=== PATIENT | male | born 1940 | race Caucasian/White ===

== ENCOUNTER 2019-10-29 08:49 | Inpatient (IN) ==
[2019-10-29] MEDS ORDERED: IOPAMIDOL 100 ML BOTTLE IV ONE (08:50)
[2019-10-29 09:55] LABS: Basophils # (Auto) 0.02 K/mcL (0.00-0.30); Basophils % (Auto) 0.2 % (0.0-2.0); Eosinophils # (Auto) 0.01 K/mcL (0.00-0.70); Eosinophils % (Auto) 0.1 % (0.0-7.0); Granulocytes % (Auto) 79.6 % (38.0-78.0); Hematocrit 51.6 % (40.1-51.0); Hemoglobin 16.9 g/dL (13.7-17.5); Lymphocytes # (Auto) 1.01 K/mcL (1.50-4.80); Lymphocytes % (Auto) 11.9 % (15.5-49.0); Mean Cell Volume 90.2 fL (80.0-100.0); Mean Corpuscular HGB Conc 32.8 g/dL (31.0-36.0); Mean Platelet Volume 9.5 fL (7.4-10.4); Monocytes # (Auto) 0.69 K/mcL (0.10-0.90); Monocytes % (Auto) 8.2 % (1.0-12.0); RBC 5.72 M/mcL (4.63-6.08); Red Cell Distribution Width 13.2 % (11.5-14.5); WBC 8.5 K/mcL (4.50-11.00)
[2019-10-29 09:57] LABS: Platelet Count 136 K/mcL (140-440)
[2019-10-29] MEDS ORDERED: OMEPRAZOLE 20 MG CAPSULE PO STA (10:08)
[2019-10-29 10:12] LABS: ALT/SGPT 21 U/l (0-40); AST/SGOT 21 U/l (0-37); Albumin 4.5 gm/dL (3.2-5.2); Albumin/Globulin Ratio 1.7 (1.0-2.3); Alkaline Phosphatase 81 U/L (39-117); Bilirubin,Total 0.5 mg/dL (0.0-1.0); Blood Urea Nitrogen 18 mg/dl (8-23); Calcium 11.1 mg/dl (8.6-10.4); Carbon Dioxide 29 mmol/L (22-30); Chloride 98 mmol/L (96-108); Globulin 2.6 gm/dL (2.2-3.7); Glomerular Filtration Rate 57; Glucose 146 mg/dL (70-105)
[2019-10-29 11:15] LABS: C-Reactive Protein 0.3 mg/dl (0.0-0.8)
[2019-10-29] MEDS ORDERED: PIPERACILLIN SODIUM/TAZOBACTAM 3.375 GM in DEXTROSE 5% IN WATER 50 ML IV ONE (11:25)
--- NOTE | 2019-10-29 11:27 | Ultrasound Report ---
History: Epigastric pain FINDINGS: The liver is normal in size. Beneath the capsule high in the right lobe there is a 9 mm cyst. The liver is otherwise homogeneous. Doppler shows normal blood flow in the hepatic and portal veins. There are multiple stones along with sludge within the lumen of the gallbladder. Gallbladder wall is thickened and measures 5 mm. There is a thin rim of pericholecystic fluid. The patient was tender while scanning over the gallbladder. The common bile duct is borderline dilated measures 7 mm. There is no apparent stone in the distal common bile duct. The visualized portions of the pancreas are normal. IMPRESSION: Cholelithiasis and cholecystitis Dr. Pierre was called with results Interpreted and Authenticated by: Dennys Blanco 10/29/19
--- NOTE | 2019-10-29 11:32 | Emergency Department Note ---
Abdominal Pain HPI General Chief Complaint: Abdominal Pain Stated Complaint: abdominal pain Time Seen by Provider: 10/29/19 10:08 Source: patient Mode of arrival: ambulatory Limitations: no limitations History of Present Illness HPI Narrative: This pleasant 79-year-old male comes emergency room with yesterday late afternoon or early evening onset of abdominal pain in the epigastric and right upper quadrant area. He has had occasional few times in the past similar episodes but this has been persistent. He was able to fall asleep last evening but he awoke around 4 AM with persistent discomfort. It is a little bit better currently. He denies fevers or chills or sweats. He was a little nauseated. Related Data Home Medications Medication Instructions Recorded Confirmed ibuprofen 200 mg capsule 200 mg PO Q6H PRN cap 09/11/14 10/29/19 cholecalciferol (vitamin D3) 50 4,000 unit PO QDAY 03/31/16 10/29/19 mcg (2,000 unit) capsule omeprazole 20 mg PO QDAY cap 03/31/16 10/29/19 Previous Rx's Medication Instructions Recorded sbeqpglgaxbaif-dizcyxnqzwa-[id number] 1 tab PO QDAY #90 tab 05/31/18 calc. 600 mg-2 mg-6 mg tablet tamsulosin 0.4 mg capsule 0.4 mg PO QDAY #90 cap 05/13/19 atorvastatin 40 mg tablet 40 mg PO QHS #90 tab 05/28/19 levothyroxine 50 mcg tablet 50 mcg PO QDAY #90 tab 05/28/19 testosterone cream 0.5 See Rx Instructions .ROUTE 07/01/19 .COMPLEX #30 unknown measurement unit code: ml metoprolol succinate 100 mg 100 mg PO QDAY #90 tab 09/30/19 tablet,extended release 24 hr trazodone 150 mg tablet 150 mg PO QHS PRN #90 tab 09/30/19 Allergies Allergy/AdvReac Type Severity Reaction Status Date / Time No Known Drug Allergies Allergy Verified 10/29/19 08:52 Review of Systems ROS ROS Narrative: No chest pain No cough or shortness of breath No lightheaded or dizzy. PFSH Medical/Surgical/Family History All Active Problems (Updated 10/30/19 @ 12:46 by Star Pierre DO) Acute cholecystitis (Acute) Acute calculous cholecystitis (Acute) Chronic insomnia (Chronic) Hemorrhoids (Acute) Constipation (Acute) Hearing loss (Chronic) Hypercalcemia (Chronic) History of coronary artery stent placement (Chronic) Prediabetes (Chronic 12/26/13) Pes planus (Chronic) Neuropathy, peripheral, idiopathic (Chronic 02/06/13) Memory loss (Chronic 02/06/13) Hypothyroidism (Chronic) Hypogonadism (Chronic) Hypertension, essential (Chronic) Gout (Chronic) Gastroesophageal reflux (Chronic) Fatigue (Chronic 02/06/13) Dyslipidemia (Chronic) Depression (Chronic) DJD (degenerative joint disease) (Chronic 11/14/13) Carpal tunnel syndrome (Chronic) CAD (coronary artery disease) (Chronic) Erickson's esophagus (Chronic) Arthritis (Chronic) Anxiety (Chronic 07/30/13) Angina pectoris (Chronic) Allergic rhinitis (Chronic 06/05/14) Actinic keratosis (Chronic) Medical History (Updated 10/30/19 @ 12:46 by Star Pierre DO) Acidosis (Resolved) resolved. . Acidosis (Inactive) Actinic keratosis (Chronic) 2006 Allergic rhinitis (Chronic 06/05/14) Angina pectoris (Chronic) 06/2008 - Right; occluded Anxiety (Chronic 07/30/13) Arthritis (Chronic) Erickson's esophagus (Chronic) 06/2008 CAD (coronary artery disease) (Chronic) 06/2008 - S/p stent x3, ASA 81 mg daily, on beta rufina. Carpal tunnel syndrome (Chronic) Left Chronic insomnia (Chronic) Takes trazodone Closed tibial fracture (Inactive) 1960 - Right Depression (Chronic) Derangement of posterior horn of medial meniscus (Inactive 09/05/07) LT knee, RT knee Diverticulitis of colon (Inactive) 06/2008 - polyps 2008 DJD (degenerative joint disease) (Chronic 11/14/13) Knee, right, right ankle - Dyslipidemia (Chronic) LDL at goal, LDL was 63, on atorvastatin 40mg lft wnl continue same. Elevated serum glucose (Inactive) a1c 6.2 stable monitor. 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 GASTRIC ANTRAL MUCOSA W/O ABNORMALITIES. GASTROESOPHAGEAL MUCOSA WITH REFLEX ESOPHAGITIS AND INTESTINAL MEAPLASIA CONSISTENT WITH ERICKSON'S ESOPHAGUS. History of coronary artery stent placement (Chronic) 08/2008 - X3 History of esophagogastroduodenoscopy (Inactive) 2007 - ERICKSON'S ESOPHAGUS, ESOPHAGEAL HIATAL HERNIA WITH GERD History of prostate surgery (Inactive 02/08/99) Knee joint replacement status (Acute) Status post biopsy of skin (Inactive 07/31/13) Left dorsum of hand: Solar lentigo and associated actinic changes Family History Mother Stomach cancer Social History Smoking Status: Never smoker Alcohol Intake Frequency: does not drink Substance Use: does not use Exam Narrative Narrative: Narrative: General Limitations: no limitations General appearance: alert, in no apparent distress and nontoxic Head Head: atraumatic and normocephalic Eye Eye: Present EOMI Neck Neck: Present trachea midline; Absent lymphadenopathy and thyromegaly Chest Chest: Present symmetric chest wall rise Respiratory Respiratory: Present normal lung sounds bilaterally; Absent respiratory distress, rales/crackles, wheezes, stridor, accessory muscle use and prolonged expiratory phase Cardiovascular Cardiovascular: Present regular rate (Frequent PVCs.) and normal rhythm; Absent systolic murmur and diastolic murmur Adbominal Abdominal: Present soft and tenderness (Moderate in the epigastric and right upper quadrant.); Absent distention, guarding, rebound, rigidity, organomegaly and mass Extremities Extremities: Absent pedal edema, pretibial edema, calf tenderness and cyanosis Back Back: Absent CVA tenderness (R), CVA tenderness (L) and spinous process tenderness Neurological Neurological: Present alert and oriented X3 Psychiatric Psychiatric: Present normal affect, polite and pleasant; Absent depressed, agitated, anxious and poor eye contact Skin Skin: Present warm and dry; Absent cyanosis and pallor Course Vital Signs Vital signs: Vital Signs Temperature 98.0 F 10/29/19 08:50 Pulse Rate 53 L 10/29/19 08:50 Respiratory Rate 18 10/29/19 08:50 Blood Pressure 170/86 10/29/19 08:50 Pulse Oximetry (%) 95 10/29/19 08:50 Temperature 97.3 F 10/30/19 12:00 Pulse Rate 70 10/30/19 12:00 Respiratory Rate 16 10/30/19 12:00 Blood Pressure 107/71 10/30/19 12:00 Pulse Oximetry (%) 94 10/30/19 12:00 MDM MDM Narrative Medical decision making narrative: 10:00 AM - onset of epigastric pain suspicious for gallbladder disease. Has a history of coronary artery disease, and GERD. We will do multiple labs including troponin and EKG. 10:27 AM - EKG demonstrates sinus rhythm at 81 bpm. There is left axis deviation, LVH and several PVCs including a couplet. Labs have returned with normal CBC and quite normal CMP. However patient is now experiencing rigors. Will add lactic acid, blood cultures, and UA. UA is already been collected. Troponin is negative. Ultrasound was also previously called which demonstrates cholelithiasis and thickening at 4 mm of the gallbladder wall as well as some surrounding fluid suggestive then for cholecystitis. 11:15 AM - With patient having the rigors also adding Zosyn 3.375 and consult to be done with surgeon if we have a bed. CT scan of the abdomen and pelvis also ordered because of possibility of abscess or other signs of major infection. 12:33 PM - spoke with Dr. Winters who agrees with admit and willing to accept. Lab Data Result diagrams: 10/30/19 05:23 10/30/19 05:23 Labs: Lab Results 10/29/19 10/29/19 10/29/19 Range/Units 09:07 09:07 09:07 WBC 8.5 (4.50-11.00) K/mcL RBC 5.72 (4.63-6.08) M/mcL Hgb 16.9 (13.7-17.5) g/dL Hct 51.6 H (40.1-51.0) % MCV 90.2 (80.0-100.0) fL MCH 29.5 (26.0-34.0) pg MCHC 32.8 (31.0-36.0) g/dL RDW 13.2 (11.5-14.5) % Plt Count 136 L (140-440) K/mcL MPV 9.5 (7.4-10.4) fL Gran % 79.6 H (38.0-78.0) % Lymph % (Auto) 11.9 L (15.5-49.0) % Isabella % (Auto) 8.2 (1.0-12.0) % Eos % (Auto) 0.1 (0.0-7.0) % Baso % (Auto) 0.2 (0.0-2.0) % Gran # 6.73 (1.80-8.00) K/mcL Lymph # (Auto) 1.01 L (1.50-4.80) K/mcL Isabella # (Auto) 0.69 (0.10-0.90) K/mcL Eos # (Auto) 0.01 (0.00-0.70) K/mcL Baso # (Auto) 0.02 (0.00-0.30) K/mcL VBG Lactic Acid (0.5-2.0) mmol/L Sodium 138 (133-145) mmol/L Potassium 4.1 (3.3-5.1) mmol/L Chloride 98 (96-108) mmol/L Carbon Dioxide 29 (22-30) mmol/L Anion Gap 11.0 (8-16) BUN 18 (8-23) mg/dl Creatinine 1.2 (0.7-1.2) mg/dl GFR Calculation 57 Glucose 146 H (70-105) mg/dL Calcium 11.1 H (8.6-10.4) mg/dl Total Bilirubin 0.5 (0.0-1.0) mg/dL AST 21 (0-37) U/l ALT 21 (0-40) U/l Alkaline Phosphatase 81 (39-117) U/L Troponin T (0-0.03) ng/ml C-Reactive Protein 0.3 (0.0-0.8) mg/dl Total Protein 7.1 (5.9-8.4) gm/dL Albumin 4.5 (3.2-5.2) gm/dL Globulin 2.6 (2.2-3.7) gm/dL Albumin/Globulin Ratio 1.7 (1.0-2.3) Lipase 25 (7-60) U/L 10/29/19 10/29/19 Range/Units 09:07 11:59 WBC (4.50-11.00) K/mcL RBC (4.63-6.08) M/mcL Hgb (13.7-17.5) g/dL Hct (40.1-51.0) % MCV (80.0-100.0) fL MCH (26.0-34.0) pg MCHC (31.0-36.0) g/dL RDW (11.5-14.5) % Plt Count (140-440) K/mcL MPV (7.4-10.4) fL Gran % (38.0-78.0) % Lymph % (Auto) (15.5-49.0) % Isabella % (Auto) (1.0-12.0) % Eos % (Auto) (0.0-7.0) % Baso % (Auto) (0.0-2.0) % Gran # (1.80-8.00) K/mcL Lymph # (Auto) (1.50-4.80) K/mcL Isabella # (Auto) (0.10-0.90) K/mcL Eos # (Auto) (0.00-0.70) K/mcL Baso # (Auto) (0.00-0.30) K/mcL VBG Lactic Acid 2.8 H (0.5-2.0) mmol/L Sodium (133-145) mmol/L Potassium (3.3-5.1) mmol/L Chloride (96-108) mmol/L Carbon Dioxide (22-30) mmol/L Anion Gap (8-16) BUN (8-23) mg/dl Creatinine (0.7-1.2) mg/dl GFR Calculation Glucose (70-105) mg/dL Calcium (8.6-10.4) mg/dl Total Bilirubin (0.0-1.0) mg/dL AST (0-37) U/l ALT (0-40) U/l Alkaline Phosphatase (39-117) U/L Troponin T < 0.01 (0-0.03) ng/ml C-Reactive Protein (0.0-0.8) mg/dl Total Protein (5.9-8.4) gm/dL Albumin (3.2-5.2) gm/dL Globulin (2.2-3.7) gm/dL Albumin/Globulin Ratio (1.0-2.3) Lipase (7-60) U/L Discharge Plan Patient/Caregiver Discharge Instructions Pt seen by [employer] EXECUTIVE/PA only: No Clinical Impression: Acute cholecystitis Patient Disposition: Xfer As Inpt ([facility]) Discharge Date/Time: 10/29/19 15:18
[2019-10-29] MEDS ORDERED: ACETAMINOPHEN 325 MG TABLET PO ONE (12:10)
--- NOTE | 2019-10-29 12:11 | Cat Scan Report ---
History: Cholelithiasis and cholecystitis with abdominal pain and rigors TECHNIQUE:65 patient was imaged following injection of intravenous nonionic contrast scanning during the portal venous phase from the diaphragm to the symphysis pubis. Sagittal and coronal reformats were created. The radiation exposure was limited using dose reduction technology. There is mild pleural thickening posteriorly inferiorly in both lung bases. There are small foci of ossifications within the thickened pleura. Small hiatus hernia is noted. The liver is normal in size. There is mild generalized fatty infiltration. There is no evidence of a liver mass. A subcapsular 7 mm cyst is seen anteriorly in segment eight of the right lobe. Spleen is normal in size and homogeneous. The gallbladder contains several stones in the neck and body. They measure up to 9 mm. The gallbladder wall is mildly thickened and edematous. There is no evidence of pericholecystic abscess. The intra and extrahepatic bile ducts are normal in caliber and there is no evidence of a stone within the duct. The pancreas is normal and homogeneous without evidence of inflammation or mass. The pancreatic duct is small. The adrenals are normal. There is a nonobstructing 3 x 4 mm calculus in a lower pole calyx of the right kidney. Also couple tiny cysts in the lower portion right kidney. Large amount calcified plaque is present along the wall of normal caliber abdominal aorta. Bowel gas pattern is normal. The appendix is noninflamed. Prostate is moderately enlarged and contains a few calcifications. The bladder appears normal but is lifted from the floor the pelvis by the enlarged prostate. No ascites abscess or adenopathy are present in the abdomen or pelvis. There is severe disc degeneration and arthritis at L3-4, L4-5 and L5-S1 with moderate degeneration at L2-3. IMPRESSION: Cholelithiasis and cholecystitis Nondilated bile ducts Dr. Pierre was called with the results Interpreted and Authenticated by: Dennys Blanco 10/29/19
[2019-10-29] MEDS ORDERED: 0.9 % SODIUM CHLORIDE 1,000 ML IV ONE ×2 (12:42→14:23)
[2019-10-29] MEDS ORDERED: ONDANSETRON 4 MG/2 ML VIAL IV PRN ×2 (13:11→15:20)
[2019-10-29] MEDS ORDERED: 0.9 % SODIUM CHLORIDE 1,000 ML IV SCH (13:15)
[2019-10-29] MEDS ORDERED: HYDROmorphone 1 MG/ML SYRINGE IV PRN (13:16)
[2019-10-29] MEDS ORDERED: PROMETHAZINE 25 MG/ML VIAL IV PRN ×2 (13:16→15:20)
[2019-10-29] MEDS ORDERED: ACETAMINOPHEN 1,000 MG/100 ML BOTTLE IV PRN (13:21)
[2019-10-29] MEDS ORDERED: PIPERACILLIN SODIUM/TAZOBACTAM 3.375 GM in DEXTROSE 5% IN WATER 50 ML IV SCH ×2 (13:30→19:30)
--- NOTE | 2019-10-29 13:44 | XRay Report ---
HISTORY: Preop evaluation FINDINGS: There is a 1.1 cm nodule in the left upper thorax, lateral to the left upper hilum. Mildly prominent increased interstitial lung markings are seen in the right lower lobe near the right heart border. The heart is mildly enlarged with left ventricular prominence. No congestive heart failure or pleural effusion are present. Patient has had reconstructive surgery in the right shoulder with small anchors in the humeral head. No prior chest x-ray is available for comparison. IMPRESSION: Nodule in the left upper thorax. This could be a neoplasm scar or granuloma. Chest CT is recommended for further evaluation. Interpreted and Authenticated by: Dennys Blanco 10/29/19
[2019-10-29] MEDS ORDERED: 0.9 % SODIUM CHLORIDE 10 ML SYRINGE IV SCH (14:00)
[2019-10-29] MEDS: ACETAMINOPHEN 1,000 MG/100 ML BOTTLE IV PRN (16:20)
--- NOTE | 2019-10-29 16:58 | General Surg History&Physical ---
HPI History of Present Illness Patient information: Note initiated : 10/29/19 at 4:48 pm Service Date, if different from initiated Date: [] Patient: Farrukh Santana a 79 y/o M admitted on 10/29/19 for Abdominal Pain . Chief Complaint: [] History of present illness: Mr. Santana is a 79 year old M admitted with acute cholecystitis and cholelithiasis. Patient had onset of achy right upper quadrant pain late last evening. He went to bed and was awakened at 4 AM with excruciating pain with nausea but no vomiting. He was seen in the emergency room where was noted that he had fever leukocytosis. Upper abdominal ultrasound confirms multiple gallstones with gallbladder with thickening gallbladder wall and pericholecystic fluid. The gallstones are in the neck of the gallbladder. Prior to admission the patient had shaking chills and has developed fever. He states that he has had similar pain in the past but it only lasted a few hours and then resolved. Patient is admitted and will be treated with antibiotics tonight with plans for cholecystectomy tomorrow. Review of Systems All systems: reviewed and no additional remarkable complaints except as stated Constitutional Constitutional: Present chills, fatigue, headache(s), malaise and weakness EENT Eyes: Absent blurry vision Ears: Present decreased hearing; Absent ear discharge Nose, mouth and throat: Present abnormal hearing; Absent vertigo Cardiovascular Cardiovascular: Present other (mouth shortness of breath); Absent chest pain, dyspnea on exertion and pedal edema Respiratory Respiratory: Absent cough and dyspnea Gastrointestinal Gastrointestinal: Present abdominal pain, bloating and nausea; Absent constipation, diarrhea and dysphagia Genitourinary Genitourinary: urinary frequency, urinary hesitancy and urinary incontinence Musculoskeletal Musculoskeletal: Present myalgias; Absent muscle weakness and numbness Integumentary Integumentary: Absent pruritus and rash Neurological Neurological: Absent dizziness, focal weakness, headache(s), syncope and vertigo Psychiatric Psychiatric: Present abnormal sleep pattern; Absent anxiety and depression Endocrine Endocrine: Absent flushing Hematologic/Lymphatic Hematologic/Lymphatic: Absent easy bleeding, easy bruising and lymphadenopathy Allergic/Immunologic Allergic/Immunologic: Absent tongue swelling, throat swelling, uticaria, wheezing and lip swelling [facility] Medical History (Updated 10/29/19 @ 13:16 by Fabiana Winters MD) Acidosis (Resolved) resolved. . Acidosis (Inactive) Actinic keratosis (Chronic) 2006 Allergic rhinitis (Chronic 06/05/14) Angina pectoris (Chronic) 06/2008 - Right; occluded Anxiety (Chronic 07/30/13) Arthritis (Chronic) Erickson's esophagus (Chronic) 06/2008 CAD (coronary artery disease) (Chronic) 06/2008 - S/p stent x3, ASA 81 mg daily, on beta rufina. Carpal tunnel syndrome (Chronic) Left Chronic insomnia (Chronic) Takes trazodone Closed tibial fracture (Inactive) 1960 - Right Depression (Chronic) Derangement of posterior horn of medial meniscus (Inactive 09/05/07) LT knee, RT knee Diverticulitis of colon (Inactive) 06/2008 - polyps 2007 DJD (degenerative joint disease) (Chronic 11/14/13) Knee, right, right ankle - Dyslipidemia (Chronic) LDL at goal, LDL was 63, on atorvastatin 40mg lft wnl continue same. Elevated serum glucose (Inactive) a1c 6.2 stable monitor. 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 GASTRIC ANTRAL MUCOSA W/O ABNORMALITIES. GASTROESOPHAGEAL MUCOSA WITH REFLEX ESOPHAGITIS AND INTESTINAL MEAPLASIA CONSISTENT WITH ERICKSON'S ESOPHAGUS. History of coronary artery stent placement (Chronic) 08/2008 - X3 History of esophagogastroduodenoscopy (Inactive) 2007 - ERICKSON'S ESOPHAGUS, ESOPHAGEAL HIATAL HERNIA WITH GERD History of prostate surgery (Inactive 02/08/99) Knee joint replacement status (Acute) Status post biopsy of skin (Inactive 07/31/13) Left dorsum of hand: Solar lentigo and associated actinic changes Family History Mother Stomach cancer Social History marital status: smoking status: Former smoker alcohol intake frequency: does not drink substance use type: does not use MEDS/ALLERGIES Home Medications and Allergies Home Medications Medication Instructions Recorded Confirmed Type ibuprofen 200 mg capsule 200 mg PO Q6H PRN cap 09/11/14 10/29/19 History cholecalciferol (vitamin D3) 50 4,000 unit PO QDAY 03/31/16 10/29/19 History mcg (2,000 unit) capsule omeprazole 20 mg PO QDAY cap 03/31/16 10/29/19 History fepxlbqbhrhlqf-dmhpzeazgqb-habhsfgaavtu 1 tab PO QDAY #90 tab 05/31/18 10/29/19 Rx calc. 600 mg-2 mg-6 mg tablet tamsulosin 0.4 mg capsule 0.4 mg PO QDAY #90 cap 05/13/19 10/29/19 Rx atorvastatin 40 mg tablet 40 mg PO QHS #90 tab 05/28/19 10/29/19 Rx levothyroxine 50 mcg tablet 50 mcg PO QDAY #90 tab 05/28/19 10/29/19 Rx testosterone cream 0.5 See Rx Instructions .ROUTE 07/01/19 10/29/19 Rx .COMPLEX #30 unknown measurement unit code: ml metoprolol succinate 100 mg 100 mg PO QDAY #90 tab 09/30/19 10/29/19 Rx tablet,extended release 24 hr trazodone 150 mg tablet 150 mg PO QHS PRN #90 tab 09/30/19 10/29/19 Rx Allergies Allergy/AdvReac Type Severity Reaction Status Date / Time No Known Drug Allergies Allergy Verified 10/29/19 08:52 Physical Examination Vital Signs Vital signs: Temp Pulse Resp BP Pulse Ox 100.7 F H 119 H 16 150/77 95 10/29/19 16:00 10/29/19 15:18 10/29/19 16:00 10/29/19 16:00 10/29/19 16:00 General physical appearance General physical exam: well developed, well nourished, moderate distress and moderate pain Eyes Eye exam: PERRL and normal ocular movement; negative icteric ENT ENT exam: decreased hearing Head Head exam IM: Present atraumatic, normal inspection and normocephalic Neck Neck exam: no masses, no bruits, trachea midline, no lymphadenopathy and no venous distension Cardiovascular Cardiovascular exam IM: Present normal rate and rhythm, RRR, +S1 and +S2; Absent JVD Respiratory Respiratory exam: normal expansion, normal respiratory effort, clear to percussion and clear to auscultation Abdomen Abdomen: Present tender (right upper quadrant and epigastric tenderness with guarding) Integumentary Integumentary: Present no rash, no growths, no abnormal pigmentation and other Neurologic Neurologic: Present normal coordination and normal sensation; Absent disoriented Musculoskeletal Musculoskeletal: Present normal gait and normal posture Psychiatric Psychiatric: Present oriented to time, oriented to person, oriented to place, speech is normal and memory intact Results Labs Result diagrams: 10/29/19 09:07 10/29/19 09:07 Labs: Abnormal lab results 10/29/19 10/29/19 10/29/19 Range/Units 09:07 09:07 11:59 Hct 51.6 H (40.1-51.0) % Plt Count 136 L (140-440) K/mcL Gran % 79.6 H (38.0-78.0) % Lymph % (Auto) 11.9 L (15.5-49.0) % Lymph # (Auto) 1.01 L (1.50-4.80) K/mcL VBG Lactic Acid 2.8 H (0.5-2.0) mmol/L Glucose 146 H (70-105) mg/dL Calcium 11.1 H (8.6-10.4) mg/dl Diabetes panel 10/29/19 Range/Units 09:07 Sodium 138 (133-145) mmol/L Potassium 4.1 (3.3-5.1) mmol/L Chloride 98 (96-108) mmol/L Carbon Dioxide 29 (22-30) mmol/L BUN 18 (8-23) mg/dl Creatinine 1.2 (0.7-1.2) mg/dl Glucose 146 H (70-105) mg/dL Calcium 11.1 H (8.6-10.4) mg/dl AST 21 (0-37) U/l ALT 21 (0-40) U/l Alkaline Phosphatase 81 (39-117) U/L Total Protein 7.1 (5.9-8.4) gm/dL Albumin 4.5 (3.2-5.2) gm/dL Calcium panel 10/29/19 Range/Units 09:07 Calcium 11.1 H (8.6-10.4) mg/dl Albumin 4.5 (3.2-5.2) gm/dL Pituitary panel 10/29/19 Range/Units 09:07 Sodium 138 (133-145) mmol/L Potassium 4.1 (3.3-5.1) mmol/L Chloride 98 (96-108) mmol/L Carbon Dioxide 29 (22-30) mmol/L BUN 18 (8-23) mg/dl Creatinine 1.2 (0.7-1.2) mg/dl Glucose 146 H (70-105) mg/dL Calcium 11.1 H (8.6-10.4) mg/dl Adrenal panel 10/29/19 Range/Units 09:07 Sodium 138 (133-145) mmol/L Potassium 4.1 (3.3-5.1) mmol/L Chloride 98 (96-108) mmol/L Carbon Dioxide 29 (22-30) mmol/L BUN 18 (8-23) mg/dl Creatinine 1.2 (0.7-1.2) mg/dl Glucose 146 H (70-105) mg/dL Calcium 11.1 H (8.6-10.4) mg/dl Total Bilirubin 0.5 (0.0-1.0) mg/dL AST 21 (0-37) U/l ALT 21 (0-40) U/l Alkaline Phosphatase 81 (39-117) U/L Total Protein 7.1 (5.9-8.4) gm/dL Albumin 4.5 (3.2-5.2) gm/dL All other labs normal. A/P Assessment and plan (1) Acute calculous cholecystitis: Status: Acute (2) History of coronary artery stent placement: Status: Chronic Comment: 08/2008 - X3 (3) Hypertension, essential: Status: Chronic (4) Gastroesophageal reflux: Status: Chronic Comment: 06/2008 Qualifiers: Esophagitis presence: esophagitis presence not specified Qualified Code(s): K21.9 - Gastro-esophageal reflux disease without esophagitis (5) CAD (coronary artery disease): Status: Chronic Comment: 06/2008 - S/p stent x3, ASA 81 mg daily, on beta rufina. Qualifiers: Associated angina: angina presence unspecified Coronary Disease- Associated Artery/Lesion type: [place] artery [place] vs. transplanted heart: pechanga heart Qualified Code(s): I25.10 - Atherosclerotic heart disease of [place] coronary artery without angina pectoris Narrative A/P Narrative: Zosyn 3.375 g IV every 6 hours Acetaminophen 1 g IV every 6 hours for fever control IV hydration In view of the midline Scheduled for cholecystectomy tomorrow. Time Spent With Patient Time: Total time spent is greater than 50% in coordination of care (as documented) at patient's floor/unit and/or counseling patient:
[2019-10-29] MEDS: 0.9 % SODIUM CHLORIDE 1,000 ML IV SCH (18:52)
[2019-10-29] MEDS: PIPERACILLIN SODIUM/TAZOBACTAM 3.375 GM in DEXTROSE 5% IN WATER 50 ML IV SCH (18:52)
[2019-10-29] MEDS: HYDROmorphone 1 MG/ML SYRINGE IV PRN (20:54)
[2019-10-29] MEDS ORDERED: DOCUSATE SODIUM 100 MG CAPSULE PO SCH (21:00)
[2019-10-29] MEDS ORDERED: SENNOSIDES 1 TABLET PO SCH (21:00)
[2019-10-29] MEDS: 0.9 % SODIUM CHLORIDE 10 ML SYRINGE IV SCH (22:21)
[2019-10-30] MEDS: ACETAMINOPHEN 1,000 MG/100 ML BOTTLE IV PRN ×2 (00:23→09:24)
[2019-10-30] MEDS: 0.9 % SODIUM CHLORIDE 1,000 ML IV SCH ×4 (00:25→18:51)
[2019-10-30] MEDS: PIPERACILLIN SODIUM/TAZOBACTAM 3.375 GM in DEXTROSE 5% IN WATER 50 ML IV SCH ×4 (01:02→18:51)
[2019-10-30] MEDS: 0.9 % SODIUM CHLORIDE 10 ML SYRINGE IV SCH ×2 (05:34→15:04)
[2019-10-30] MEDS: HYDROmorphone 1 MG/ML SYRINGE IV PRN ×2 (05:34→11:12)
[2019-10-30 07:55] LABS: ALT/SGPT 24 U/l (0-40); AST/SGOT 20 U/l (0-37); Albumin 3.4 gm/dL (3.2-5.2); Albumin/Globulin Ratio 1.4 (1.0-2.3); Alkaline Phosphatase 61 U/L (39-117); Bilirubin,Direct 0.3 mg/dL (0.0-0.3); Blood Urea Nitrogen 16 mg/dl (8-23); Carbon Dioxide 26 mmol/L (22-30); Chloride 101 mmol/L (96-108); Globulin 2.5 gm/dL (2.2-3.7); Glomerular Filtration Rate 63; Glucose 110 mg/dL (70-105); Lactate Dehydrogenase 181 U/L (94-250); Phosphorous 2.6 mg/dL (2.7-4.5); Triglycerides 85 mg/dl (<150); Uric Acid 3.4 mg/dL (2.5-8.0)
[2019-10-30 08:17] LABS: Basophils # (Auto) 0.02 K/mcL (0.00-0.30); Basophils % (Auto) 0.1 % (0.0-2.0); Eosinophils # (Auto) 0.14 K/mcL (0.00-0.70); Eosinophils % (Auto) 0.9 % (0.0-7.0); Granulocytes % (Auto) 83.9 % (38.0-78.0); Hematocrit 47.8 % (40.1-51.0); Hemoglobin 15.7 g/dL (13.7-17.5); Lymphocytes # (Auto) 1.01 K/mcL (1.50-4.80); Lymphocytes % (Auto) 6.7 % (15.5-49.0); Mean Cell Volume 90.2 fL (80.0-100.0); Mean Corpuscular HGB Conc 32.8 g/dL (31.0-36.0); Mean Platelet Volume 9.4 fL (7.4-10.4); Monocytes # (Auto) 1.26 K/mcL (0.10-0.90); Monocytes % (Auto) 8.4 % (1.0-12.0); Platelet Count 112 K/mcL (140-440); Red Cell Distribution Width 13.6 % (11.5-14.5)
[2019-10-30] MEDS ORDERED: METOPROLOL SUCCINATE 50 MG TAB.XL.24H PO SCH ×2 (09:00)
[2019-10-30] MEDS ORDERED: LIDOCAINE HCL/PF 100 MG/5 ML SYRINGE IV ONE (15:14)
[2019-10-30] MEDS ORDERED: KETAMINE 100 MG/ML ML IV ONE (15:14)
[2019-10-30] MEDS ORDERED: SUGAMMADEX SODIUM 200 MG/2 ML VIAL IV ONE (15:14)
[2019-10-30] MEDS ORDERED: GLYCOPYRROLATE 0.2 MG/ML VIAL IV ONE (15:14)
[2019-10-30] MEDS ORDERED: PROPOFOL 200 MG/20 ML VIAL IV ONE (15:14)
[2019-10-30] MEDS ORDERED: ONDANSETRON 4 MG/2 ML VIAL IV ONE (15:14)
[2019-10-30] MEDS ORDERED: fentaNYL 250 MCG/5 ML VIAL IV ONE (15:14)
[2019-10-30] MEDS ORDERED: DEXAMETHASONE 10 MG/ML VIAL IV ONE (15:14)
[2019-10-30] MEDS ORDERED: ROCURONIUM 10 MG/ML ML IV ONE (15:14)
[2019-10-30] MEDS ORDERED: MEPERIDINE 25 MG/ML SYRINGE IV PRN (15:55)
[2019-10-30] MEDS ORDERED: HYDROmorphone 0.5 MG/0.5 ML SYRINGE IV PRN (15:55)
[2019-10-30] MEDS ORDERED: IPRATROPIUM/ALBUTEROL 3 ML AMPUL.NEB NEB PRN (15:55)
[2019-10-30] MEDS ORDERED: NALOXONE HCL 0.4 MG/ML VIAL IV PRN (15:55)
[2019-10-30] MEDS ORDERED: METHOCARBAMOL 1,000 MG/10 ML VIAL IV PRN (15:55)
[2019-10-30] MEDS ORDERED: ACETAMINOPHEN 1,000 MG/100 ML BOTTLE IV ONE (15:55)
[2019-10-30] MEDS ORDERED: LACTATED RINGERS 250 ML IV PRN (15:55)
[2019-10-30] MEDS ORDERED: fentaNYL 100 MCG/2 ML VIAL IV PRN (15:55)
[2019-10-30] MEDS ORDERED: BENZOCAINE/MENTHOL 1 LOZENGE PO PRN (15:55)
[2019-10-30] MEDS ORDERED: LACTATED RINGERS 1,000 ML IV SCH (16:00)
--- NOTE | 2019-10-30 16:28 | Brief Operative Note ---
Brief Operative Note Date of procedure: 10/30/19 Pre-op diagnosis: acute cholecystitis with cholelithiasis Post-op diagnosis: other (acute cholecystitis with cholelithiasis) Procedure: laparoscopic cholecystectomy Grafts/Implants: No (deondre drain x1) Anesthesia: GETA Findings: acute severe inflammation of gallbladder Complications: none Surgeon: Fabiana Winters Estimated blood loss (cc): 35 Specimens Removed/Pathology: other (gallbladder) Condition: stable Disposition: PACU
[2019-10-30] MEDS ORDERED: ACETAMINOPHEN 1,000 MG/100 ML BOTTLE IV PRN (17:56)
[2019-10-30] MEDS ORDERED: PROMETHAZINE 25 MG/ML VIAL IV PRN (17:56)
[2019-10-30] MEDS ORDERED: oxyCODONE HCL 5 MG TABLET PO PRN (17:56)
[2019-10-30] MEDS ORDERED: ONDANSETRON 4 MG/2 ML VIAL IV PRN (17:56)
[2019-10-30] MEDS ORDERED: HYDROmorphone 1 MG/ML SYRINGE IV PRN (17:56)
[2019-10-30] MEDS ORDERED: traZODone HCL 150 MG TABLET PO PRN (17:56)
[2019-10-31] MEDS: PIPERACILLIN SODIUM/TAZOBACTAM 3.375 GM in DEXTROSE 5% IN WATER 50 ML IV SCH ×5 (00:21→17:29)
[2019-10-31] MEDS: 0.9 % SODIUM CHLORIDE 10 ML SYRINGE IV SCH ×3 (00:24→13:14)
[2019-10-31] MEDS: 0.9 % SODIUM CHLORIDE 1,000 ML IV SCH ×4 (03:30→17:17)
[2019-10-31] MEDS ORDERED: LEVOTHYROXINE 50 MCG TABLET PO SCH (07:30)
[2019-10-31 07:45] LABS: ALT/SGPT 32 U/l (0-40); AST/SGOT 23 U/l (0-37); Albumin/Globulin Ratio 1.1 (1.0-2.3); Alkaline Phosphatase 50 U/L (39-117); Bilirubin,Direct < 0.2 mg/dL (0.0-0.3); Bilirubin,Total 0.5 mg/dL (0.0-1.0); Blood Urea Nitrogen 17 mg/dl (8-23); Calcium 8.9 mg/dl (8.6-10.4); Carbon Dioxide 24 mmol/L (22-30); Chloride 103 mmol/L (96-108); Globulin 2.7 gm/dL (2.2-3.7); Glomerular Filtration Rate 71; Glucose 142 mg/dL (70-105); Lactate Dehydrogenase 150 U/L (94-250); Phosphorous 1.9 mg/dL (2.7-4.5); Triglycerides 134 mg/dl (<150); Uric Acid 2.4 mg/dL (2.5-8.0)
[2019-10-31 08:49] LABS: Basophils # (Auto) 0.02 K/mcL (0.00-0.30); Basophils % (Auto) 0.2 % (0.0-2.0); Eosinophils # (Auto) 0 K/mcL (0.00-0.70); Eosinophils % (Auto) 0 % (0.0-7.0); Granulocytes % (Auto) 89.6 % (38.0-78.0); Hematocrit 43.9 % (40.1-51.0); Lymphocytes # (Auto) 0.64 K/mcL (1.50-4.80); Lymphocytes % (Auto) 5.1 % (15.5-49.0); Mean Cell Volume 91.1 fL (80.0-100.0); Mean Corpuscular HGB Conc 31.9 g/dL (31.0-36.0); Mean Platelet Volume 9.7 fL (7.4-10.4); Monocytes # (Auto) 0.64 K/mcL (0.10-0.90); Monocytes % (Auto) 5.1 % (1.0-12.0); Platelet Count 107 K/mcL (140-440); RBC 4.82 M/mcL (4.63-6.08); Red Cell Distribution Width 13.6 % (11.5-14.5); WBC 12.6 K/mcL (4.50-11.00)
[2019-10-31] MEDS ORDERED: TAMSULOSIN 0.4 MG CAPSULE PO SCH (09:00)
[2019-10-31] MEDS ORDERED: METOPROLOL SUCCINATE 50 MG TAB.XL.24H PO SCH (09:00)
--- NOTE | 2019-10-31 17:37 | Discharge Summary ---
Discharge Provider Provider Patient information: Note initiated : 10/31/19 at 5:28 pm Service Date, if different from initiated Date: [] Patient: Farrukh Santana 79 y/o M admitted on 10/29/19 for Abdominal Pain . Chief Complaint: [] Date of admission: 10/29/19 15:18 Discharge date: 10/31/19 Primary care physician: Ashley Thomason DO Admitting clinician: Fabiana Winters Attending physician on admission: Fabiana Winters Consults: 10/29/19 Consult to Physician [CONS] Stat Comment: Consulting Provider: Fabiana Winters Reason For Exam: Physician to Consult Attending physician on discharge: Fabiana Winters Discharging clinician: Fabiana Winters COURSE Hospital Course Hospital course: 79-year-old male admitted on 28 October with complaint of abdominal pain and nausea. He was noted to have fever with leukocytosis. Ultrasound and CT confirm multiple gallstones with thickening of the gallbladder wall with some pericholecystic fluid. He underwent laparoscopic cholecystectomy on 29 October. He was noted to have acute severe inflammation of the gallbladder. It was removed without difficulty. Because of drainage and inflammation a Will drain was left in place. He has done well in the postop period and is having only mild discomfort. His white count is mildly elevated at 12.6. LFTs are normal. Patient is stable for discharge on ciprofloxacin for 7 days and will be followed in the outpatient clinic. Discharge diagnosis: acute cholecystitis with cholelithiasis Secondary discharge diagnosis: coronary artery disease, asymptomatic Depression with anxiety GERD with Silva's esophagus Reason for admission: acute cholecystitis with cholelithiasis Procedures: laparoscopic cholecystectomy Pertinent studies/significant findings: CT of abdomen and pelvis with IV contrast Upper abdominal ultrasound Complications: none Time Spent with Patient Time attestation: Total time spent providing and/or coordinating discharge services: Physical Examination Vital Signs Vital signs: Temp Pulse Resp BP Pulse Ox 98.3 F 57 L 22 164/90 96 10/31/19 16:33 10/31/19 16:33 10/31/19 16:33 10/31/19 16:33 10/31/19 16:33 General physical appearance General physical exam: well developed, well nourished, moderate distress and moderate pain Eyes Eye exam: PERRL, normal ocular movement and pale; negative icteric ENT ENT exam: normal pinna, normal nares, normal mucosa and decreased hearing Head Head exam IM: Present atraumatic, normal inspection and normocephalic Neck Neck exam: no masses, no bruits, trachea midline, no lymphadenopathy and no venous distension; negative deviated trachea, diffuse goiter and limited ROM Cardiovascular Cardiovascular exam IM: Present normal rate and rhythm, RRR, +S1 and +S2; Absent JVD Respiratory Respiratory exam: normal expansion, normal respiratory effort, clear to percussion and clear to auscultation Abdomen Abdomen: Present tender (moderate tenderness in the portal sites and around the drain; drain with serosanguineous fluid) Integumentary Integumentary: Present no rash, no growths, no abnormal pigmentation and other Neurologic Neurologic: Present normal coordination and normal sensation Musculoskeletal Musculoskeletal: Present normal gait and normal posture Psychiatric Psychiatric: Present oriented to time, oriented to person, oriented to place, speech is normal and memory intact Discharge Plan Patient/Caregiver Discharge Instructions Activity: increase activity as tolerated and other Diet: Low Fat Instructions: Laparoscopic Cholecystectomy (DC) Prescriptions: New oxycodone 10 mg tablet 10 mg PO Q6H PRN (Reason: pain) Qty: 20 RF: 0 ciprofloxacin HCl [ciprofloxacin HCl] 500 MG tablet 500 mg PO BID Qty: 20 RF: 0 Continued pveuyrjinz-vbxrsof-Q-mefolate 600-2-6 mg tablet 1 tab PO QDAY Qty: 90 RF: 1 tamsulosin 0.4 mg capsule 0.4 mg PO QDAY Qty: 90 RF: 1 atorvastatin 40 mg tablet 40 mg PO QHS Qty: 90 RF: 1 levothyroxine 50 mcg tablet 50 mcg PO QDAY Qty: 90 RF: 1 testosterone cream 0.5 See Rx Instructions .ROUTE .COMPLEX Qty: 30 RF: 3 metoprolol succinate 100 mg tablet extended release 24 hr 100 mg PO QDAY Qty: 90 RF: 0 trazodone 150 mg tablet 150 mg PO QHS PRN (Reason: insomnia) Qty: 90 RF: 0 ibuprofen 200 mg capsule 200 mg PO Q6H PRN (Reason: Pain) RF: 0 omeprazole 20 mg capsule,delayed release(DR/EC) 20 mg PO QDAY RF: 0 cholecalciferol (vitamin D3) 2,000 unit capsule 4,000 unit PO QDAY RF: 0 Follow Up Plan Follow up with: Fabiana Winters MD [Physician] - 11/14/19 3:00 pm Patient Disposition: Home, Self-Care Prognosis: Good Rehab Potential: Good I certify that the patient requires SNF services: Yes Overall status at discharge: patient is progressing back to baseline Discharge Orders: Discharge Order (Routine); Ordered 10/31/19 Ordered By: Fabiana Winters Pending Pending Pending: Resuscitation Status Full Code Diet Full Liquid Diet Start MonOct 30 1755 Hydromorphone HCl (Dilaudid) 1 mg IV Q2HP PRN; Protocol PRN Reason: Per Pain Protocol Last Admin: 10/30/19 18:52 Dose: 1 mg Documented by: LAKE Sodium Chloride (Sodium Chloride 0.9%) 1,000 mls @ 125 mls/hr IV .Q8H [facility] Last Admin: 10/31/19 17:17 Dose: Not Given Documented by: Admin: 10/31/19 12:15 Dose: 125 mls/hr Documented by: Infusion: 10/31/19 11:30 Dose: 125 mls/hr Documented by: Admin: 10/31/19 03:30 Dose: 125 mls/hr Documented by: Infusion: 10/31/19 02:51 Dose: 125 mls/hr Documented by: Admin: 10/30/19 18:51 Dose: 125 mls/hr Documented by: LAKE Piperacillin Sod/Tazobactam (Sod 3.375 gm/ Dextrose) 50 mls @ 100 mls/hr IV Q6H SARAH; Protocol Last Infusion: 10/31/19 12:46 Dose: 0 mls/hr Documented by: Admin: 10/31/19 12:16 Dose: 100 mls/hr Documented by: Infusion: 10/31/19 05:45 Dose: 0 mls/hr Documented by: Admin: 10/31/19 05:15 Dose: 100 mls/hr Documented by: Infusion: 10/31/19 00:51 Dose: 100 mls/hr Documented by: Admin: 10/31/19 00:21 Dose: 100 mls/hr Documented by: Infusion: 10/30/19 19:21 Dose: 0 mls/hr Documented by: Admin: 10/30/19 18:51 Dose: 100 mls/hr Documented by: LAKE Levothyroxine Sodium (Synthroid) 50 mcg PO QAMAC [facility] Last Admin: 10/31/19 09:05 Dose: 50 mcg Documented by: ISAIAS Metoprolol Succinate (Toprol Xl) 100 mg PO QDAY [facility] Last Admin: 10/31/19 09:05 Dose: 100 mg Documented by: ISAIAS Sodium Chloride (Saline Flush) 10 ml IV Q8 [facility] Last Admin: 10/31/19 13:14 Dose: Not Given Documented by: Admin: 10/31/19 05:12 Dose: Not Given Documented by: Admin: 10/31/19 00:24 Dose: Not Given Documented by: LULU Tamsulosin HCl (Flomax) 0.4 mg PO QDAY [facility] Last Admin: 10/31/19 09:03 Dose: 0.4 mg Documented by: ISAIAS Shift Summary 10/31/19 04:49 Shift Summary by Татьяна Sharma : Pt is alert and oriented x4, calm and cooperative. VSS on RA. JESUS drain has been putting out SS fluid. He denied nausea. He is currently states minimal pain. Lap sites with minimal SS drain and clear film dressing/rajinder. He is a standby assist and uses urinal at bedside. Will update at bedside. Initialized on 10/31/19 04:49 - END OF NOTE
--- NOTE | 2019-11-01 13:28 | Surgical Pathology Report ---
HISTOLOGY SPECIMEN MICROSCOPIC DIAGNOSIS GALLBLADDER, CHOLECYSTECTOMY: -- GANGRENOUS ACUTE AND CHRONIC CHOLECYSTITIS WITH CHOLELITHIASIS. (ACP:sln) PROCEDURAL IMPRESSION Acute cholecystitis. GROSS DESCRIPTION Received in formalin labeled gallbladder, is a 10.5 x 5 x 3.5 cm purple-brooke gallbladder. The serosal surface is smooth and glistening. There are multiple metal clips present including one on the cystic duct. The margin is stapled closed. The lumen contains thick red-brown fluid and a single 1 cm dark brown multilobular stone. The mucosa is red to dark brown and velvety. The wall is up to 0.4 cm thick. Protocol Manager sections submitted - two cassettes. (STS:sln) Electronically Signed by: Bruce Blanco M.D.
--- NOTE | 2019-11-11 08:43 | Operative Note ---
DATE OF OPERATION: 10/30/2019 PREOPERATIVE DIAGNOSES: Acute cholecystitis with cholelithiasis. POSTOPERATIVE DIAGNOSES: Acute cholecystitis with cholelithiasis. PROCEDURE: Laparoscopic cholecystectomy. SURGEON: Fabiana Winters M.D. FINDINGS: Acute, severe inflammation of the gallbladder. DESCRIPTION OF PROCEDURE: Under general anesthesia, the patient's abdomen was prepped and draped in a sterile field. Timeout procedure was carried out as per protocol. Supraumbilical incision was made and Veress needle inserted. Abdomen was insufflated with 2 liters of CO2. A 12 mm port was placed. Laparoscope was placed. An acutely inflamed gallbladder was encountered. Under videoscopic guidance, a 12 mm port and two 5 mm ports were placed in the right subcostal region. The gallbladder was decompressed with a Weck needle. The gallbladder was grasped and positioned. Using blunt dissection, the cystic duct and cystic artery were definitively identified and dissected back to the gallbladder. The cystic duct was too thick for clips, so it was divided using an Endo RAYMUNDO stapler. Cystic artery was clipped with four clips and divided. The gallbladder was then from the infrahepatic bed using electrocautery. There was some oozing from the bed which was controlled with electrocautery. The gallbladder was placed in an Endopouch and retrieved. Will drain was placed and brought out through the most lateral port site. The fascia at the umbilicus was closed with interrupted 0 Vicryl. Skin incisions were closed with rajinder. Tegaderm dressings were placed. Drain was secured with 2-0 nylon. The patient tolerated the procedure well. He was awakened, transferred to a bed, and taken to the postanesthetic care unit in stable, satisfactory condition. LCS:dinorah Job ID: [id number] Doc ID: [id number] Fabiana Winters M.D.
== END 2019-10-31 19:55 | disposition home or self-care (01) | DRG 413 ==
LOC: ED 08:49 → ICU 15:18 → MEDSUR 10-30 17:31
PROVIDERS: ADMIT Family Medicine Adult Medicine; ATTEND Family Medicine Adult Medicine